=== PATIENT | male | born 1980 | race Caucasian/White ===

== ENCOUNTER 2017-04-18 20:24 | Emergency (ER) | payer OTHER ==
[2017-04-18] MEDS ORDERED: Ketorolac Tromethamine 30 MG/ML VIAL ONE (21:02)
== END 2017-04-18 21:10 | disposition home or self-care (01) ==
LOC: BURERS 20:24
DX: M54.12 Radiculopathy, cervical region (principal)
CPT/HCPCS: 96372; J1885